=== PATIENT | male | born 1965 | race Caucasian/White ===

== ENCOUNTER 2016-12-15 17:31 | Inpatient (IN) | payer OTHER ==
[~2016-12-15] VITALS: Ht 175.3 cm; Wt 104.1 kg
[~2016-12-15 17:31] MED LIST: AMLO5TAB2 PO; DIAZ5TAB PO; DULO30CA2 PO; HYDR12.547 PO; HYDR2TAB13 PO; OXYC-229 PO; TADA10TA; TRAZ50TA18 PO; [UNRECOGNIZED DRUG - CODE] INJ
[2016-12-15] MEDS ORDERED: DIAZEPAM 5 MG/ML, 2ML ONE ×2 (17:57→20:29)
[2016-12-15] MEDS ORDERED: ONDANSETRON 2MG/ML, 2ML ONE (17:57)
[2016-12-15] MEDS ORDERED: MORPHINE SULFATE 4 MG/ML, 1ML ONE ×2 (17:57→18:53)
[2016-12-15] MEDS ORDERED: KETOROLAC 30 MG/1 ML ONE (17:57)
[2016-12-15] MEDS ORDERED: ONDANSETRON 2MG/ML, 2ML IVPush ONE (18:00)
[2016-12-15] MEDS ORDERED: SODIUM CHLORIDE 0.9% 1,000ML IV ONE (18:00)
[2016-12-15] MEDS ORDERED: DIAZEPAM 5 MG/ML, 2ML IVPush ONE (18:00)
[2016-12-15] MEDS ORDERED: KETOROLAC 30 MG/1 ML IVPush ONE (18:00)
[2016-12-15] MEDS: MORPHINE SULFATE 4 MG/ML, 1ML IVPush PRN ×2 (18:10→18:59)
[2016-12-15] MEDS ORDERED: DIAZEPAM 5 MG/ML, 2ML IV ONE (20:30)
[2016-12-15] MEDS ORDERED: FINA5TAB4 PO (20:43)
[2016-12-15] MEDS ORDERED: ZOLPIDEM 5MG TABLET PO PRN (22:30)
[2016-12-15] MEDS ORDERED: DOCUSATE 100 MG CAPSULE PO PRN (22:30)
[2016-12-15] MEDS ORDERED: POLYETHYLENE GLYCOL 17 GM PACKET PO PRN (22:30)
[2016-12-15] MEDS ORDERED: ONDANSETRON 2MG/ML, 2ML IVP PRN (22:30)
[2016-12-15] MEDS ORDERED: BISACODYL 10 MG SUPP PR PRN (22:30)
[2016-12-15] MEDS ORDERED: ACETAMINOPHEN 325 MG TABLET PO PRN (22:30)
[2016-12-15] MEDS ORDERED: DULOXETINE 30 MG CAPSULE.DR PO SCH (22:30)
[2016-12-15] MEDS: SODIUM CHLORIDE 0.9% 1,000 ML IV SCH (23:47)
[2016-12-15] MEDS: METHOCARBAMOL 750 MG in DEXTROSE 5% 100 ML IV SCH (23:48)
[2016-12-15] MEDS: OXYcodone IR 5MG TABLET PO PRN (23:50)
[2016-12-15] MEDS: GABAPENTIN 100 MG CAPSULE PO SCH (23:51)
[2016-12-15] MEDS: ENOXAPARIN 40 MG/0.4 ML SQ SCH (23:51)
[2016-12-15] MEDS: DEXAMETHASONE 4 MG/ML, 1ML IVPush SCH (23:52)
[2016-12-16 01:34] VITALS: BP 136/81
[2016-12-16] MEDS: KETOROLAC 30 MG/1 ML IVPush PRN ×2 (01:52→09:09)
[2016-12-16] MEDS: DEXAMETHASONE 4 MG/ML, 1ML IVPush SCH ×4 (04:30→20:55)
[2016-12-16] MEDS: METHOCARBAMOL 750 MG in DEXTROSE 5% 100 ML IV SCH ×4 (04:52→23:09)
[2016-12-16 05:42] LABS: BLOOD UREA NITROGEN 18 mg/dL (7-18)
[2016-12-16 06:36] VITALS: BP 127/84
[2016-12-16] MEDS: FINASTERIDE 5 MG TABLET PO SCH (09:09)
[2016-12-16] MEDS: GABAPENTIN 100 MG CAPSULE PO SCH ×3 (09:09→20:48)
[2016-12-16 12:19] VITALS: BP 127/87
[2016-12-16] MEDS: MORPHINE SULFATE 4 MG/ML, 1ML IVPush PRN ×2 (12:34→20:49)
[2016-12-16] MEDS ORDERED: PROPOFOL 10 MG/ML, 20ML ONE (14:41)
[2016-12-16] MEDS ORDERED: MIDAZOLAM 1 MG/ML, 5ML ONE (14:53)
[2016-12-16] MEDS ORDERED: FENTANYL PF 100 MCG/2ML ONE (14:53)
[2016-12-16] MEDS ORDERED: GADOBUTROL 10 MMOL/10 ML PFS ONE (15:16)
[2016-12-16] MEDS ORDERED: LABETALOL 5MG/ML, 20ML IV PRN (16:00)
[2016-12-16] MEDS ORDERED: MIDAZOLAM 1 MG/ML, 2ML IV PRN (16:00)
[2016-12-16] MEDS ORDERED: HYDROmorphone 1 MG/ML, 1ML IV PRN (16:00)
[2016-12-16] MEDS ORDERED: ONDANSETRON 2MG/ML, 2ML IVPush PRN (16:00)
[2016-12-16] MEDS ORDERED: FENTANYL PF 100 MCG/2ML IV PRN (16:00)
[2016-12-16] MEDS ORDERED: OXYcodone 5 MG/5 ML ORAL.SOL UDC PO PRN (16:00)
[2016-12-16] MEDS ORDERED: MEPERIDINE/PF 25MG/0.5ML IVPush PRN (16:00)
[2016-12-16] MEDS ORDERED: PROMETHAZINE 25 MG/ML, 1ML IV PRN (16:00)
[2016-12-16] MEDS ORDERED: hydrALAzine 20 MG/ML, 1ML IV PRN (16:00)
[2016-12-16] MEDS: SODIUM CHLORIDE 0.9% 1,000 ML IV SCH (16:23)
[2016-12-16 18:30] VITALS: BP_SYST 143; BP_SYST 160; BP_DIAS 107; BP_DIAS 96
[2016-12-16] MEDS: OXYcodone IR 5MG TABLET PO PRN ×2 (19:19→23:10)
[2016-12-16] MEDS: DIAZEPAM 5 MG/ML, 2ML IV PRN (20:48)
[2016-12-16] MEDS: ENOXAPARIN 40 MG/0.4 ML SQ SCH (20:55)
[2016-12-16] MEDS ORDERED: HOLD MEDICATION MC PRN (23:00)
[2016-12-16 23:04] VITALS: BP 133/79
[2016-12-17] MEDS: MORPHINE SULFATE 4 MG/ML, 1ML IVPush PRN ×6 (00:02→23:17)
[2016-12-17 03:26] VITALS: BP 162/98
[2016-12-17] MEDS: DEXAMETHASONE 4 MG/ML, 1ML IVPush SCH ×4 (04:34→22:36)
[2016-12-17] MEDS: METHOCARBAMOL 750 MG in DEXTROSE 5% 100 ML IV SCH ×4 (04:56→23:17)
[2016-12-17] MEDS: DIAZEPAM 5 MG/ML, 2ML IV PRN (04:57)
[2016-12-17] MEDS: SODIUM CHLORIDE 0.9% 1,000 ML IV SCH ×2 (04:57→18:04)
[2016-12-17 05:04] VITALS: BP 145/75
[2016-12-17 08:03] VITALS: BP 155/94
[2016-12-17] MEDS: GABAPENTIN 100 MG CAPSULE PO SCH ×3 (08:06→22:34)
[2016-12-17] MEDS: FINASTERIDE 5 MG TABLET PO SCH (08:06)
[2016-12-17] MEDS ORDERED: SENN1TAB7 PO (09:58)
[2016-12-17] MEDS ORDERED: GABA300C10 PO (09:58)
[2016-12-17] MEDS ORDERED: METH4TAB2 PO (09:58)
[2016-12-17] MEDS ORDERED: OXYC-229 PO (09:58)
[2016-12-17] MEDS ORDERED: METH750T2 PO (09:58)
[2016-12-17] MEDS ORDERED: DEXAMETHASONE 10 MG in SODIUM CHLORIDE 0.9% 50 ML IV SCH (10:00)
[2016-12-17] MEDS: OXYcodone IR 5MG TABLET PO PRN ×3 (10:40→20:10)
[2016-12-17] MEDS ORDERED: CYMBALTA MC SCH (11:30)
[2016-12-17 13:45] VITALS: BP 133/89
[2016-12-17 20:04] VITALS: BP 144/90
[2016-12-17] MEDS: ENOXAPARIN 40 MG/0.4 ML SQ SCH (22:34)
[2016-12-17] MEDS: DULOXETINE 30 MG CAPSULE.DR PO SCH (22:34)
[2016-12-18 02:46] VITALS: BP 135/82
[2016-12-18] MEDS: METHOCARBAMOL 750 MG in DEXTROSE 5% 100 ML IV SCH ×2 (04:41→11:00)
[2016-12-18] MEDS: DEXAMETHASONE 4 MG/ML, 1ML IVPush SCH ×2 (04:41→10:30)
[2016-12-18] MEDS: OXYcodone IR 5MG TABLET PO PRN ×2 (04:41→09:50)
[2016-12-18 07:49] VITALS: BP 154/98
[2016-12-18] MEDS: DULOXETINE 30 MG CAPSULE.DR PO SCH (08:24)
[2016-12-18] MEDS: FINASTERIDE 5 MG TABLET PO SCH (08:24)
[2016-12-18] MEDS: GABAPENTIN 100 MG CAPSULE PO SCH (08:24)
[2016-12-18] MEDS: SODIUM CHLORIDE 0.9% 1,000 ML IV SCH (08:25)
== END 2016-12-18 12:30 | disposition home or self-care (01) | DRG 552 ==
LOC: ED 18:29 → EDIP 21:40 → SUATTDRO 21:58 → 4NOR 22:35 → DCLOUNGE 12-18 12:12
DX: M51.17 Intervertebral disc disorders with radiculopathy, lumbosacral region (principal); R55 Syncope and collapse; E66.01 Morbid (severe) obesity due to excess calories; G47.30 Sleep apnea, unspecified; G89.29 Other chronic pain; F32.9 Major depressive disorder, single episode, unspecified; I10 Essential (primary) hypertension; Z86.73 Personal history of transient ischemic attack (TIA), and cerebral infarction without residual deficits; Z98.1 Arthrodesis status; Z68.33 Body mass index [BMI] 33.0-33.9, adult; Z82.49 Family history of ischemic heart disease and other diseases of the circulatory system
CPT/HCPCS: 36415; 71010; 72158; 80048; 85025; 85610; 93005; 96374; 96375; 96376; A9585; J1100; J1650; J1885; J2250; J2405; J2704; J3010; J3360; J2800; J7030

== ENCOUNTER → 2016-12-25 | Outpatient (CLI) | payer OTHER ==
[~2016-12-25] MED LIST changes: +FINA5TAB4 PO; +GABA300C10 PO; +METH4TAB2 PO; +METH750T2 PO; +SENN1TAB7 PO
== END | disposition home or self-care (01) ==
LOC: STAR 12:43
PROVIDERS: ATTEND Neurological Surgery
DX: M54.16 Radiculopathy, lumbar region (principal)
CPT/HCPCS: 36415; 85730

== ENCOUNTER 2016-12-29 11:06 | Observation (INO) | payer OTHER ==
[~2016-12-29] VITALS: Ht 175.3 cm; Wt 109.2 kg
[~2016-12-29 11:06] MED LIST changes: +BACITRACIN 50,000 UNIT ONE; +BACITRACIN OINT 500U/GM, 15 GM ONE; +BUPIVACAINE/PF-EPI 0.25% 1:200K ONE; +THROMBIN 5,000 UNIT VIAL TP ONE
[2016-12-29] MEDS ORDERED: LACTATED RINGERS 1,000 ML IV SCH (11:25)
[2016-12-29] MEDS ORDERED: FENTANYL PF 250 MCG/5ML ONE (13:33)
[2016-12-29] MEDS ORDERED: ROCURONIUM 10 MG/ML ONE (13:34)
[2016-12-29] MEDS ORDERED: PROPOFOL 10 MG/ML, 20ML ONE (13:34)
[2016-12-29] MEDS ORDERED: CEFAZOLIN 1,000 MG ONE (13:34)
[2016-12-29] MEDS ORDERED: SUCCINYLCHOLINE 20 MG/ML, 10ML ONE (13:34)
[2016-12-29] MEDS ORDERED: hydrALAzine 20 MG/ML, 1ML IV PRN (14:30)
[2016-12-29] MEDS ORDERED: MIDAZOLAM 1 MG/ML, 2ML IV PRN (14:30)
[2016-12-29] MEDS ORDERED: OXYcodone 5 MG/5 ML ORAL.SOL UDC PO PRN (14:30)
[2016-12-29] MEDS ORDERED: ONDANSETRON 2MG/ML, 2ML IVPush PRN (14:30)
[2016-12-29] MEDS ORDERED: LABETALOL 5MG/ML, 20ML IV PRN (14:30)
[2016-12-29] MEDS ORDERED: FENTANYL PF 100 MCG/2ML IV PRN (14:30)
[2016-12-29] MEDS ORDERED: PROMETHAZINE 25 MG/ML, 1ML IV PRN (14:30)
[2016-12-29] MEDS ORDERED: MEPERIDINE/PF 25MG/0.5ML IVPush PRN (14:30)
[2016-12-29] MEDS ORDERED: ACETAMINOPHEN 650 MG/20.3 ML UDC ONE (15:11)
[2016-12-29] MEDS ORDERED: HYDROmorphone 2 MG/ML, 1ML ONE (15:11)
[2016-12-29] MEDS ORDERED: OXYcodone 5 MG/5 ML ORAL.SOL UDC ONE (15:11)
[2016-12-29] MEDS: HYDROmorphone 1 MG/ML, 1ML IV PRN ×4 (15:16→15:53)
[2016-12-29] MEDS ORDERED: ACETAMINOPHEN 650 MG/20.3 ML UDC PO STA (15:17)
[2016-12-29] MEDS ORDERED: PROMETHAZINE 25 MG/ML, 1ML ONE (15:20)
[2016-12-29] MEDS ORDERED: TIZANIDINE 4MG TABLET PO ONE (18:00)
[2016-12-29] MEDS: OXYcodone/APAP 10/325MG TABLET PO PRN ×2 (20:18→20:19)
[2016-12-29] MEDS: METHOCARBAMOL 750 MG TABLET PO PRN (21:55)
[2016-12-29] MEDS ORDERED: HYDROmorphone 2 MG/ML, 1ML IVPush PRN (22:00)
[2016-12-29] MEDS ORDERED: OXYC-229 PO (23:22)
[2016-12-29] MEDS ORDERED: TIZA4CAP2 PO (23:23)
[2016-12-29 23:24] VITALS: BP_SYST 104; BP_SYST 105; BP_SYST 114; BP_DIAS 66; BP_DIAS 70; BP_DIAS 76
[2016-12-30] MEDS: OXYcodone/APAP 10/325MG TABLET PO PRN ×4 (00:42→09:20)
[2016-12-30 04:05] VITALS: BP 109/67
[2016-12-30] MEDS: METHOCARBAMOL 750 MG TABLET PO PRN (05:12)
[2016-12-30 07:50] VITALS: BP 115/73
[2016-12-30] MEDS ORDERED: DULOXETINE 30 MG CAPSULE.DR PO SCH (09:00)
[2016-12-30] MEDS ORDERED: FINASTERIDE 5 MG TABLET PO SCH (09:00)
[2016-12-30 10:00] VITALS: BP_SYST 117; BP_SYST 132; BP_SYST 135; BP_DIAS 77; BP_DIAS 82; BP_DIAS 84
== END 2016-12-30 10:50 | disposition home or self-care (01) ==
LOC: OUT 11:06 → 4NOR 19:28 → OUT 19:34 → 4NOR 19:35
PROVIDERS: ADMIT Neurological Surgery; ATTEND Neurological Surgery
DX: M54.18 Radiculopathy, sacral and sacrococcygeal region (principal); I10 Essential (primary) hypertension; M48.06 Spinal stenosis, lumbar region
CPT/HCPCS: 63030; 72100; G0378; J0330; J0690; J1170; J2550; J2704; J3010; J7120

== ENCOUNTER 2017-06-12 10:51 | Day surgery (SDC) | payer OTHER ==
[~2017-06-12] VITALS: Ht 175.3 cm; Wt 100.2 kg
[~2017-06-12 10:51] MED LIST changes: -BACITRACIN 50,000 UNIT ONE; -BACITRACIN OINT 500U/GM, 15 GM ONE; -BUPIVACAINE/PF-EPI 0.25% 1:200K ONE; -HYDR2TAB13 PO; +HYDR2TAB29 PO; -OXYC-229 PO; +OXYC-307 PO; -THROMBIN 5,000 UNIT VIAL TP ONE; +TIZA4CAP2 PO
[2017-06-12] MEDS ORDERED: ZOLP10TA PO (11:32)
[2017-06-12] MEDS ORDERED: TAPE50TA9 PO (11:32)
[2017-06-12] MEDS ORDERED: LACTATED RINGERS 1,000 ML IV SCH (11:35)
[2017-06-12 11:42] VITALS: BP 132/90
[2017-06-12] MEDS ORDERED: MIDAZOLAM 1 MG/ML, 2ML ONE (12:28)
[2017-06-12] MEDS ORDERED: FAMOTIDINE 20 MG/2 ML ONE (12:28)
[2017-06-12] MEDS ORDERED: PROPOFOL 10 MG/ML, 20ML ONE (13:10)
[2017-06-12] MEDS ORDERED: GLYCOPYRROLATE 0.4 MG/2 ML, 2ML ONE (13:10)
[2017-06-12] MEDS ORDERED: ONDANSETRON 2MG/ML, 2ML ONE (13:10)
[2017-06-12] MEDS ORDERED: MIDAZOLAM 1 MG/ML, 2ML IV PRN (13:30)
[2017-06-12] MEDS ORDERED: FENTANYL PF 100 MCG/2ML IV PRN (13:30)
[2017-06-12] MEDS ORDERED: OXYcodone 5 MG/5 ML ORAL.SOL UDC PO PRN (13:30)
[2017-06-12] MEDS ORDERED: PROMETHAZINE 25 MG/ML, 1ML IV PRN (13:30)
== END 2017-06-12 14:40 ==
LOC: OUT 10:51 → EDSTATUS 12:45 → OUT 14:40
PROVIDERS: ATTEND Nurse Practitioner Family
DX: M54.5 Low back pain (principal)
CPT/HCPCS: 72110; 72148; 93005; J2250; J2405; J2704; J7120; S0028

== ENCOUNTER 2018-04-30 09:48 | Emergency (ER) | payer OTHER ==
[~2018-04-30] VITALS: Ht 175.3 cm; Wt 98.0 kg
[~2018-04-30 09:48] MED LIST changes: -AMLO5TAB2 PO; +AMLO5TAB7 PO; -SENN1TAB7 PO; +SENN1TAB8 PO; +TAPE50TA9 PO; +TRAZ-136 PO; -TRAZ50TA18 PO; +ZOLP10TA PO
[2018-04-30] MEDS ORDERED: METHOCARBAMOL 750 MG TABLET PO ONE (10:30)
[2018-04-30] MEDS ORDERED: HYDROmorphone 1 MG/ML, 1ML IV ONE (10:30)
[2018-04-30] MEDS ORDERED: ONDANSETRON 2MG/ML, 2ML IVPush ONE (10:30)
[2018-04-30] MEDS ORDERED: KETOROLAC 30 MG/1 ML IVPush ONE (10:30)
[2018-04-30] MEDS ORDERED: HYDROmorphone 2 MG/ML, 1ML ONE ×2 (10:47→14:17)
[2018-04-30] MEDS ORDERED: METHOCARBAMOL 750 MG TABLET ONE (10:48)
[2018-04-30] MEDS ORDERED: ONDANSETRON ODT 4 MG ONE (10:48)
[2018-04-30] MEDS ORDERED: KETOROLAC 30 MG/1 ML ONE (10:48)
[2018-04-30] MEDS ORDERED: ONDANSETRON ODT 4 MG PO ONE (11:00)
[2018-04-30] MEDS ORDERED: HYDROmorphone 2 MG/ML, 1ML IVPush PRN (14:30)
[2018-04-30] MEDS ORDERED: MIDAZOLAM 1 MG/ML, 2ML ONE (15:22)
[2018-04-30] MEDS ORDERED: MIDAZOLAM 1 MG/ML, 5ML ONE (15:25)
[2018-04-30] MEDS ORDERED: DEXAMETHASONE 4 MG/ML, 1ML ONE (15:25)
[2018-04-30] MEDS ORDERED: ONDANSETRON 2MG/ML, 2ML ONE (15:25)
[2018-04-30] MEDS ORDERED: PROPOFOL 10 MG/ML, 20ML ONE (15:25)
[2018-04-30] MEDS ORDERED: FENTANYL PF 100 MCG/2ML IV PRN (16:00)
[2018-04-30] MEDS ORDERED: LABETALOL 5MG/ML, 20ML IV PRN (16:00)
[2018-04-30] MEDS ORDERED: LORazepam 2 MG/ML, 1ML IVPush PRN (16:00)
[2018-04-30] MEDS ORDERED: HYDROmorphone 1 MG/ML, 1ML IV PRN (16:00)
[2018-04-30] MEDS ORDERED: ACETAMINOPHEN 325 MG TABLET PO PRN (16:00)
[2018-04-30] MEDS ORDERED: HALOPERIDOL 5 MG/ML IV PRN (16:00)
[2018-04-30] MEDS ORDERED: PROMETHAZINE 25 MG/ML, 1ML IV PRN (16:00)
[2018-04-30] MEDS ORDERED: hydrALAzine 20 MG/ML, 1ML IV PRN (16:00)
[2018-04-30] MEDS ORDERED: OXYcodone 5 MG/5 ML ORAL.SOL UDC PO PRN (16:00)
[2018-04-30] MEDS ORDERED: MEPERIDINE/PF 25MG/0.5ML IVPush PRN (16:00)
[2018-04-30 17:31] VITALS: BP 152/104
== END 2018-04-30 17:35 | disposition home or self-care (01) ==
LOC: OR 17:05
DX: M54.42 Lumbago with sciatica, left side (principal); I10 Essential (primary) hypertension; Z86.73 Personal history of transient ischemic attack (TIA), and cerebral infarction without residual deficits
CPT/HCPCS: 72158; 96374; 96375; 96376; 99284; J1100; J1170; J1885; J2250; J2405; J2704; J7512

== ENCOUNTER 2018-10-08 12:16 | Day surgery (SDC) | payer OTHER ==
[~2018-10-08] VITALS: Ht 175.3 cm; Wt 96.8 kg
[~2018-10-08 12:16] MED LIST changes: +AMLO-150 PO; -AMLO5TAB7 PO; -TRAZ-136 PO; +TRAZ50TA66 PO
[2018-10-08] MEDS ORDERED: LACTATED RINGERS 1,000 ML IV SCH (12:47)
[2018-10-08 12:48] VITALS: BP 147/108
[2018-10-08] MEDS ORDERED: SUCCINYLCHOLINE 20 MG/ML, 10ML ONE (13:31)
[2018-10-08] MEDS ORDERED: PROPOFOL 10 MG/ML, 20ML ONE (13:31)
[2018-10-08] MEDS ORDERED: FENTANYL PF 100 MCG/2ML ONE ×2 (13:59→14:42)
[2018-10-08] MEDS: FENTANYL PF 100 MCG/2ML IV PRN ×2 (14:48→14:56)
== END 2018-10-08 16:15 | disposition home or self-care (01) ==
LOC: OUT 12:16 → EDSTATUS 14:00 → OUT 16:15
PROVIDERS: ATTEND Nurse Practitioner Family
DX: M54.5 Low back pain (principal)
CPT/HCPCS: 72110; 72148; J0330; J2704; J3010; J7120

== ENCOUNTER 2019-07-28 12:59 | Emergency (ER) ==
[~2019-07-28] VITALS: Ht 177.8 cm; Wt 99.8 kg
[~2019-07-28 12:59] MED LIST changes: +SENN-177 PO; -SENN1TAB8 PO
--- NOTE | 2019-07-28 13:03 | NUR ---
NO ANSWER TO TRIAGE X 1.
--- NOTE | 2019-07-28 13:21 | NUR ---
pt to ed for left sided lower back to ankle pain and weakness. Dr. Loomis to bs for assessment. pt states claustrophobia and cannot have an MRI without sedation. recommend admit at thist alic[facility]. pt deciding if want to be admitted at this time.
[2019-07-28 13:24] VITALS: BP 143/106
--- NOTE | 2019-07-28 13:31 | NUR ---
pt up self to rr. ua cup provided.
== END 2019-07-28 14:07 | disposition home or self-care (01) ==
LOC: ED 14:00
DX: M54.5 Low back pain (principal); I10 Essential (primary) hypertension; Z86.73 Personal history of transient ischemic attack (TIA), and cerebral infarction without residual deficits
CPT/HCPCS: 99281

== ENCOUNTER 2019-08-14 07:39 | Day surgery (SDC) | payer OTHER ==
[~2019-08-14] VITALS: Ht 175.3 cm; Wt 96.0 kg
[2019-08-14 08:31] VITALS: BP 157/106
[2019-08-14] MEDS ORDERED: LACTATED RINGERS 1,000 ML IV SCH (08:40)
[2019-08-14] MEDS ORDERED: SUCCINYLCHOLINE 20 MG/ML, 10ML ONE (09:02)
[2019-08-14] MEDS ORDERED: PROPOFOL 10 MG/ML, 20ML ONE (09:02)
[2019-08-14] MEDS ORDERED: MIDAZOLAM 1 MG/ML, 5ML ONE (09:03)
[2019-08-14] MEDS ORDERED: MEPERIDINE/PF 25MG/0.5ML IVPush PRN (10:00)
[2019-08-14] MEDS ORDERED: OXYcodone 5 MG/5 ML ORAL.SOL UDC PO PRN (10:00)
[2019-08-14] MEDS ORDERED: LABETALOL 5MG/ML, 20ML IV PRN (10:00)
[2019-08-14] MEDS ORDERED: ONDANSETRON 2MG/ML, 2ML IVPush PRN (10:00)
[2019-08-14] MEDS ORDERED: hydrALAzine 20 MG/ML, 1ML IV PRN (10:00)
[2019-08-14] MEDS ORDERED: METOCLOPRAMIDE 5 MG/ML, 2ML IV PRN (10:00)
[2019-08-14] MEDS ORDERED: HYDROmorphone 1 MG/ML, 1ML INJ IV PRN (10:00)
[2019-08-14] MEDS ORDERED: PROMETHAZINE 25 MG/ML, 1ML IV PRN (10:00)
[2019-08-14] MEDS ORDERED: KETOROLAC 30 MG/1 ML IV PRN (10:00)
[2019-08-14] MEDS ORDERED: ALBUTEROL SULFATE 2.5 MG/3 ML NPPB PRN (10:00)
[2019-08-14] MEDS ORDERED: FENTANYL PF 100 MCG/2ML IV PRN (10:00)
== END 2019-08-14 11:00 | disposition home or self-care (01) ==
LOC: OUT 07:39 → EDSTATUS 09:30 → OUT 11:00
PROVIDERS: ATTEND Nurse Practitioner Family
DX: M51.17 Intervertebral disc disorders with radiculopathy, lumbosacral region (principal); M48.061 Spinal stenosis, lumbar region without neurogenic claudication; I25.2 Old myocardial infarction; I10 Essential (primary) hypertension
CPT/HCPCS: 72110; 72148; J0330; J2250; J2704; J7120